=== PATIENT | female | born 1975 | race Caucasian/White ===

== ENCOUNTER 2017-01-19 04:00 | Emergency (ER) | payer BC, OTHER ==
[~2017-01-19] VITALS: Ht 172.7 cm; Wt 138.0 kg
[~2017-01-19 04:00] MED LIST: ALBUAER2 INH; ALT10 PO; ATV5 PO; BCPILLS PO; OMEP40CA PO; OXYC-57 PO; SERT-234 PO
[2017-01-19 04:08] VITALS: TEMP 36.5; Ht 172.7 cm; Wt 138.0 kg
--- NOTE | 2017-01-19 04:59 | EMERGENCY ROOM VISIT NOTE ---
ED Visit Note First contact with patient: 04:03 CHIEF COMPLAINT: Ankle pain HISTORY OF PRESENT ILLNESS: This 42-year-old patient presents to the emergency department via EMS with family after sustaining an injury to the right ankle and foot with a twisting, inversion motion when she tripped over her dog that was 170 pounds. The patient complains of pain along the outside of the ankle. The patient denies pain of the foot. The patient rates the pain as throbbing and 4/10. The patient is not able to bear weight on the foot. Constant pain, worse with movement, weight bearing, and the dependent position. No knee pain, the patient is able to move their toes. No numbness or weakness of the foot, no laceration. The patient has not had a previous fracture to this ankle. The patient has taken Tylenol for the pain. The patient denies any other injury. Patient states she had 4 mixed earlier but that was greater than 6 hours ago. It is now 4 AM in the morning. REVIEW OF SYSTEMS: A 6 system review of systems was completed with positives and pertinent negatives listed in the HPI. ALLERGIES: None MEDICATIONS: Reviewed PMH: Anxiety SOCIAL HISTORY: No drug use PHYSICAL EXAM: Vital Signs: Reviewed Nurse's notes, vital signs stable. GENERAL : Pleasant female, no acute distress, but appears in pain, well-developed, well- nourished. MENTAL STATUS: Alert, oriented to person place and time, and cooperative. MUSCULOSKELETAL: The right ankle is swollen and tender over the medial malleolus, but the skin is intact and there is no ligamentous instability. There is no fifth metatarsal tenderness. There is no tenderness over the rest of the foot. There is no calf or tibia/fibular tenderness. There is no visual deformity. The foot and toes are warm and well-perfused. Dorsalis pedis pulse 2+. Sensation to pain and light touch is intact. Capillary refill less than 2 seconds. EMERGENCY DEPARTMENT COURSE: I examined the patient. Ice pack was applied and patient declined pain medicine. X-rays of the right ankle were reviewed by myself and reveal trimalleolar fracture with mortise disruption per my interpretation. Stirrup and posterior Ortho-Glass was applied to the ankle under my direction and the position was satisfactory. Neurovascular status was rechecked and intact. The patient was instructed on the use of crutches. I consulted orthopedics and spoke with Dr. Ogden and recommends splint and he came in to see the patient as he had another patient in the ER. He did attempt to reduce the ankle and splinted. Please see his dictation for further information regarding his treatment plan. The patient was discharged home in good condition. Differential diagnoses include sprain, strain, fracture, dislocation and other etiologies were considered. DIAGNOSIS: Right ankle trimalleolar fracture with mortise disruption DISCHARGE INSTRUCTIONS: DO NOT drive, drink alcohol, operate machinery, or perform dangerous activities today. You were given medications in the ER that can affect your ability to safely function or operate a vehicle. Oxycodone (OxyIR) 5mg: Take 1-2 pills every four hours for breakthrough pain. Avoid alcohol, operating machinery or dangerous equipment, working on ladders or roofs, DRIVING, or situations where being under the influence may be dangerous. It is recommended to use an [id number] stool softener such as Colace, 100mg twice daily while taking this medication to avoid constipation. Ibuprofen(Motrin, Advil) may be used for fever or pain. Use 600mg every six hours as needed. Take with food. Avoid using more than 2400mg in a 24 hour period. Do not use 2400mg per day for more than three consecutive days without physician direction. Prolonged inappropriate use can lead to stomach upset or ulcers. This medication can be taken if you need to drive, work, or perform activities which may be dangerous when taking narcotic pain medication. (AND/OR) Acetaminophen(Tylenol) may be used for fever or pain. Use 1000mg every six hours as needed. Avoid using more than 4000mg in a 24 hour period. This medication can be taken if you need to drive, work, or perform activities which may be dangerous when taking narcotic pain medication. Ice compresses for 20 minutes at a time four times daily for 2-3 days. Use the crutches as instructed. Rest and elevate your injury. Do not get the splint wet. If your splint feels excessively tight, you have worsening pain, develop numbness or tingling, or your digits appear blue, loosen the armond wrap. Then reapply the armond wrap gently without removing the splint. If your symptoms are not quickly relieved return to the ER for re- evaluation. Continue current medications. Return to the ER immediately for any numbness, tingling, severe pain, extreme swelling in the extremity or as needed. Call Orthopedics tomorrow to arrange follow up for your injury. Current/Historical Medications Scheduled Albuterol (Ventolin), 2 PUFFS INH PRN Sertraline (Zoloft), 150 MG PO DAILY Scheduled PRN Oxycodone Immediate Rel Tab (Roxicodone Ir), 1-2 TAB PO Q4H PRN for Severe Pain Allergies Uncoded Allergies: AMOXILLIN (Allergy, Mild, RASH, 01/19/17) Vital Signs Date Time Temp Pulse Resp B/P (MAP) Pulse Ox O2 Delivery O2 Flow Rate FiO2 01/19/17 05:30 101 20 136/90 94 Room Air 01/19/17 04:08 36.5 97 17 136/90 95 Room Air Medications Administered Medications (Trade) Dose Ordered Sig/Keyla Route Start Time Stop Time Status Last Admin Dose Admin Lorazepam (Ativan Tab) 1 mg STK-MED ONCE .ROUTE 01/19/17 05:47 01/19/17 05:48 DC 01/19/17 05:47 1 MG Departure Information Prescriptions Oxycodone Immediate Rel Tab (ROXICODONE IR) 5 Mg Tab 1-2 TAB PO Q4H Y for Severe Pain, #20 TAB Prov: Karmen Albarado ., JAJA 01/19/17 Referrals Apolinar Mclain M.D. (PCP) Patient Instructions My [facility]
[2017-01-19] MEDS ORDERED: OXYCODONE IR HOME PACK PO ONE ×2 (05:00→09:44)
[2017-01-19] MEDS ORDERED: OXYC1TAB3 PO (05:01)
[2017-01-19] MEDS ORDERED: XYLOCAINE 1%/SOD BICARB 20 ML VIAL INFIL ONE (05:15)
[2017-01-19] MEDS ORDERED: LORAZEPAM 1 MG TAB ONE (05:47)
--- NOTE | 2017-01-19 07:17 | DIAGNOSTIC IMAGING REPORT ---
RIGHT ANKLE 2 VIEWS CLINICAL HISTORY: 42 years-old Female presenting with FALL/ANKLE PAIN/ETOH Right. TECHNIQUE: Frontal and lateral views of the right ankle were obtained. COMPARISON: None. FINDINGS: Evaluation limited due to patient positioning. Acute transversely oriented fracture of the medial malleolus with valgus angulation at the fracture site. Coronally oriented tibial plafond fracture. Obliquely oriented fracture of the fibula, which is at the level of the syndesmosis. Fragments noted posterior to the ankle likely at the fibular fracture site. The medial malleolus fracture fragment remains congruent at the ankle mortise as does the lateral malleolus. Disruption of the tibial plafond. With 11 mm of displacement of the posterior malleoli are fracture fragments and widening of the anterior joint space, which measures over 7 mm. Enthesophyte noted at the inferior calcaneus and insertion of the Achilles tendon. Os peroneum noted. Extensive soft tissue swelling. IMPRESSION: Adams B fracture pattern with fractures of the posterior and medial malleoli. The posterior malleolus fracture extensively involves the tibial plafond with significant resulting displacement as detailed above. Electronically signed by: Herb Li M.D. 01/19/2017 7:16 AM Dictated Date/Time: 01/19/2017 7:10 AM
--- NOTE | 2017-01-19 07:22 | DIAGNOSTIC IMAGING REPORT ---
RIGHT ANKLE MIN 3 VIEWS ROUTINE CLINICAL HISTORY: 42 years-old Female presenting with POST REDUCTION Right. TECHNIQUE: Frontal, mortise, and lateral views of the right ankle were obtained. COMPARISON: Plain radiographs performed earlier the same day. FINDINGS: Overlying plaster splint degrades evaluation of underlying osseous detail. The Adams B trimalleolar fracture pattern is again noted with decrease diastases at the transversely oriented medial malleolus fracture plane. An osseous fragment is again noted intervening within the fracture plane. Decreased diastases of the posterior malleolar fracture fragment, which is now displaced by 6 millimeters, previously 11 mm. The coronally oriented posterior malleolus fracture plane extensively involves the tibial plafond. Persistent widening of the anterior tibiotalar, measuring 4 to 5 mm, decreased from prior. Mild widening of the tibiofibular articulation. Again, the medial malleolus or fracture fragment and lateral malleolus remains congruent with the talus. IMPRESSION: Improved alignment at the Adams B trimalleolar fracture with persistent although decreased diastases of the posterior malleolus fracture fragment and widening of the anterior tibiotalar articulation. Additional findings as above. Electronically signed by: Herb Li M.D. 01/19/2017 7:21 AM Dictated Date/Time: 01/19/2017 7:17 AM
[2017-01-19 09:47] VITALS: BP 136/98; PULSE 102; O2SAT 96
[2017-01-29] MEDS ORDERED: HYDR-5688 PO ×2 (15:43)
[2017-01-29] MEDS ORDERED: VNTHFA/IN INH ×2 (15:43)
[2017-01-29] MEDS ORDERED: PROM25TA9 PO ×2 (15:44)
[2017-01-29] MEDS ORDERED: PRLSR20 PO ×2 (15:50)
--- NOTE | 2017-01-30 08:11 | Orthopedic Consultation ---
Orthopedic Consultation Date of Consultation: Jan 30, 2017. Attending Physician: Reason for Consultation: Right Ankle fracture History of Present Illness Patient seen at [facility] ER on 01/19/17 accompanied with family, reports fall this evening when she tripped over her dog. Reports inability to bear weight, + pain, +edema and subsequently came to the ED. Denies any associated injury, numbness, tingling or hitting head or LOC. Past Medical/Surgical History Medical Problems: (1) Fracture of ankle, trimalleolar, closed Status: Acute Social History Smoking Status: Never Smoker Allergies Coded Allergies: Amoxicillin (Verified Allergy, Mild, MILD RASH, 01/29/17) Morphine (Verified Allergy, Unknown, INEFFECTIVE, 01/29/17) Home Medications Scheduled Omeprazole (Prilosec), 20 MG PO PRN Sertraline (Zoloft), 200 MG PO QAM Scheduled PRN Albuterol Hfa (Ventolin Hfa), 2 PUFFS INH Q6H PRN for PRN Hydrocodone/Acetaminophen 5MG/325MG (King 5MG/325MG), 1 TABLET PO Q4-6H PRN for Pain Promethazine Hcl (Phenergan), 25 MG PO Q6H PRN for Nausea Physical Exam NAD, AOX3 B/L UE NVSI +M/R/U/AIN/PIN SILT grossly, CR< 2 seconds, +2 Radial Pulse, full painless ROM Wrist, Elbow, Shoulder. LLE NVSI +EHL/FHL/TA/GS SILT grossly, CR< 2 seconds, +2 DP pulse, full painless ROM ankle/knee/hip RLE NVSI +EHL/FHL, dorsiflexion, plantarflexion deferred, +2 DP Pulse, CR< 2 seconds, +Edema ankle, +ecchymosis, compartments soft NT, skin intact Assessment & Plan 42 yo F with right trimalleolar ankle fracture -Hematoma block performed by injecting 10cc of 1% lidocaine into the ankle joint , followed by closed reduction and splinting. -Post reduction images taken which demonstrated reduction of the fracture in the coronal plane and mild residual dorsal subluxation. -Patient educated on the importance of strict non weight bearing, elevation and cyrotherapy -She is to follow up with Dr. Leahy and should call the office to schedule her appointment on Friday for surgical planning. -Pain controlled -Patient educated on risk of increased pain and swelling in RLE and should come back to the ER to be evaluated if symptoms worsen. XR right ankle demonstrates trimalleolar fracture with dorsal and lateral subluxation.
[2017-01-31] MEDS ORDERED: PROM25TA9 PO ×2 (18:36)
[2017-01-31] MEDS ORDERED: HYDR-5688 PO ×2 (18:36)
[2017-01-31] MEDS ORDERED: ASPEC325 PO ×2 (18:41)
== END 2017-01-19 09:57 | disposition home or self-care (01) ==
LOC: EDBD 04:00 → C.EDC 04:01
DX: S82.51XA Displaced fracture of medial malleolus of right tibia, initial encounter for closed fracture (principal); W01.0XXA Fall on same level from slipping, tripping and stumbling without subsequent striking against object, initial encounter; Y92.9 Unspecified place or not applicable; F41.9 Anxiety disorder, unspecified; Z79.899 Other long term (current) drug therapy

== ENCOUNTER → 2017-01-31 | Day surgery (SDC) | payer OTHER ==
[2017-01-29 15:45] VITALS: BMI 46.0
--- NOTE | 2017-01-30 21:25 | History and Physical ---
History & Physical Date Jan 30, 2017. Chief Complaint Right ankle pain History of Present Illness The patient is a 42 year old female with complaints of right ankle pain after sustaining a right ankle injury. She noted a deformity and was taken to [facility] ER where x-rays were performed and the fx/dislocation was later reduced and splinted. She is now being set up for surgical management. Past Medical/Surgical History PMH: Obesity, depression, GERD, Asthma Past surgical hx: Right knee surgery, cholecystectomy Nonsmoker, No alcohol use. Allergies Coded Allergies: Amoxicillin (Verified Allergy, Mild, MILD RASH, 01/29/17) Morphine (Verified Allergy, Unknown, INEFFECTIVE, 01/29/17) Home Medications Scheduled Omeprazole (Prilosec), 20 MG PO PRN Sertraline (Zoloft), 200 MG PO QAM Scheduled PRN Albuterol Hfa (Ventolin Hfa), 2 PUFFS INH Q6H PRN for PRN Hydrocodone/Acetaminophen 5MG/325MG ([place] 5MG/325MG), 1 TABLET PO Q4-6H PRN for Pain Promethazine Hcl (Phenergan), 25 MG PO Q6H PRN for Nausea Physical Examination Skin: warm/dry, no rash Eyes: normal inspection ENT: normal ENT inspection Head: normocephalic, atraumatic Neck: supple, no adenopathy, trachea midline Respiratory/Chest: lungs clear, normal breath sounds, no respiratory distress Cardiovascular: regular rate, rhythm, no murmur Abdomen / GI: normal bowel sounds, non tender Extremities: + pertinent finding (Right ankle: NWB RLE in splint. Tender throughout the ankle. No ROM or strength testing performed. NV intact RLE.) Neurologic/Psych: no motor/sensory deficits, alert, oriented x 3 Diagnosis Right trimalleolar ankle fx. Plan of Treatment Recommend an ORIF right trimalleolar ankle fx with posterior approach with patient prone. All potential risks, benefits, complications, alternatives, and rehab have been discussed and she wishes to proceed. She will be scheduled for 01.31.17 with ASA 81 mg BID x 4-6 wks for DVT prophylaxis.
[~2017-01-31] VITALS: Ht 172.7 cm; Wt 138.6 kg
[~2017-01-31] MED LIST changes: +ASPEC325 PO; +ATROPINE SULFATE 0.1 MG/ML 5ML SYR IV PRN; +BACITRACIN 50000 UNIT VIAL ONE; +BUPIVACAINE 0.5 % 5 MG/1 ML PF 10ML VIAL ONE; +BUPIVACAINE/EPINEPHRINE 0.5% MPF 1:200,000 30 ML VIAL ONE; +CEFAZOLIN 2000 MG/60 ML D5W IV SCH; +DEXAMETHASONE SOD INJ 4 MG/ML VIAL ONE; +FENTANYL CITRATE INJ 50 MCG/1 ML 2 ML VIAL ONE; +GLYCOPYRROLATE INJ 0.2 MG/ML VIAL ONE; +HYDR-5688 PO; +HYDROmorphone INJ 1 MG/ML SYR ONE; +HYDROmorphone INJ 2 MG/ML SYR/VIAL IV PRN; +KETOROLAC TROMETHAMINE 30 MG/ML VIAL IV. PRN; +LACTATED RINGER'S 1000ML 1,000 ML IV SCH; +LIDOCAINE HCL 2% 2 ML VIAL (20MG/ML) ONE; +MIDAZOLAM HCL 1 MG/ML 2ML VIAL ONE; +NEOSTIGMINE METHYLSULFATE 5 MG/5 ML SYR ONE; +ONDANSETRON INJ 2 MG/ML 2 ML VIAL IV PRN; +ONDANSETRON INJ 2 MG/ML 2 ML VIAL ONE; +OXYC1TAB3 PO; +OXYCODONE/ACETAMINOPHEN 5-325 TAB PO PRN; +PATIENT'S HEIGHT AND/OR WEIGHT NEEDED SCH; +PRLSR20 PO; +PROM25TA9 PO; +PROMETHAZINE HCL INJ 12.5 MG in SODIUM CHLORIDE 0.9% 50ML 50 ML IV PRN; +PROPOFOL IV EMULSION 10 MG/ML 20 ML VIAL IV ONE; +ROCURONIUM BROMIDE 10 MG/ML 5 ML VIAL IV ONE; +SCOPOLAMINE 1.5 MG TDSY TD ONE; +SODIUM CHLORIDE 0.9% 1000ML 1,000 ML IV SCH; +SODIUM CHLORIDE 0.9% INJ 10 ML VIAL ONE; +VNTHFA/IN INH
[2017-01-31 11:14] VITALS: BP 144/89; PULSE 87; TEMP 36.4; O2SAT 95; Ht 172.7 cm; Wt 138.6 kg
--- NOTE | 2017-01-31 13:24 | History & Physical Bridge Note ---
H&P Re-Evaluation Bridge Note: I have examined the patient, reviewed the History & Physical and in the interval since the performance of the History & Physical I have noted the following changes of clinical significance: No changes noted
--- NOTE | 2017-01-31 18:40 | Discharge Instructions ---
Discharge Instructions Date of Service Jan 31, 2017. Admission Reason for Admission: Right Ankle Trimalleolar Fracture Discharge Discharge Diagnosis / Problem: ankle ORIF Discharge Goals Goal(s): Improve function Activity Recommendations Activity Limitations: as noted below . Instructions / Follow-Up Instructions / Follow-Up Keep dressings clean dry and in tact, Do NOT get wet. Ice/ elevate as needed Non weight bearing right leg with crutches or walker. Follow up with Dr. Leahy 10-12 days post op, call [phone] to confirm appt. Current Hospital Diet Patient's current hospital diet: Discharge Diet Recommended Diet: Regular Diet Pending Studies Studies pending at discharge: no Medical Emergencies . Who to Call and When: Medical Emergencies: If at any time you feel your situation is an emergency, please call 911 immediately. . Non-Emergent Contact Non-Emergency issues call your: Primary Care Provider . "Provider Documentation" section prepared by Fei Hollis. . VTE Core Measure Inpt VTE Proph given/why not?: Angella Sanderson SCD's [place] Drug Monitoring Program Search Results: patient reviewed within database, no issues identified
--- NOTE | 2017-01-31 18:48 | [facility] Post Operative Brief Note ---
Immediate Operative Summary Operative Date Jan 31, 2017. Pre-Operative Diagnosis Right displaced trimalleolar ankle fracture. Pilon variant distal tibial fracture Post-Operative Diagnosis Right displaced trimalleolar ankle fracture. Pilon variant distal tibial fracture Procedure(s) Performed ORIF right displaced trimalleolar ankle fracture Surgeon Dr. Immanuel Leahy D.O. Cable Television Access Coordinator Surgeon(s) Dr. Gopal Johnson D.O. Estimated Blood Loss 50mL Findings See dict Specimens None, Per Surgeon Drains None Anesthesia GETT w/ poplitteal block Complication(s) None Disposition Recovery Room / PACU
--- NOTE | 2017-01-31 19:17 | DIAGNOSTIC IMAGING REPORT ---
R ANKLE 2 VIEWS HISTORY: 42 years-old Female RT ORIF TRIMALLEOLAR FX status post ORIF with prior right ankle fracture. COMPARISON: Right ankle radiographs 01/19/2017 TECHNIQUE: 2 spot fluoroscopic images of the right ankle were obtained utilizing 130.9 seconds of fluoroscopy time. FINDINGS: There has been interval ORIF with plate and screw fusion hardware fixating the lateral and posterior malleolus fractures. There are 2 cannulated screws fixating the medial malleolus fracture. There is improved alignment. Hardware appears intact. IMPRESSION: Status post ORIF of the previously noted trimalleolar fracture with satisfactory alignment. The above report was generated using voice recognition software. It may contain grammatical, syntax or spelling errors. Electronically signed by: Eugenio Donnelly M.D. 01/31/2017 7:16 PM Dictated Date/Time: 01/31/2017 7:14 PM
[2017-01-31 20:15] VITALS: BP 127/79; PULSE 94; TEMP 36.5; O2SAT 97
--- NOTE | 2017-01-31 20:43 | Anesthesiology Progress Note ---
Anesthesia Post Op Note Date & Time Jan 31, 2017 at 20:43 Vital Signs Pain Intensity: 1 Vital Signs Past 12 Hours Date Time Temp Pulse Resp B/P (MAP) Pulse Ox O2 Delivery O2 Flow Rate FiO2 01/31/17 20:15 36.5 94 18 127/79 97 Room Air 01/31/17 20:10 93 15 128/74 97 Room Air 01/31/17 20:00 36.4 94 14 128/76 98 Room Air 01/31/17 19:50 98 10 128/66 96 Room Air 01/31/17 19:40 105 13 136/82 95 Room Air 01/31/17 19:30 108 22 149/85 96 Oxymask 3 01/31/17 19:20 110 20 152/80 99 Oxymask 10 01/31/17 19:10 109 23 151/84 99 Oxymask 10 01/31/17 19:00 36.6 112 17 165/94 98 Oxymask 10 01/31/17 11:14 36.4 87 18 144/89 (107) 95 Room Air Notes Mental Status: alert / awake / arousable, participated in evaluation Pt Amnestic to Procedure: Yes Nausea / Vomiting: adequately controlled Pain: adequately controlled Airway Patency, RR, SpO2: stable & adequate BP & HR: stable & adequate Hydration State: stable & adequate Anesthetic Complications: no major complications apparent
[2017-01-31 20:49] VITALS: BP 130/78; PULSE 94; TEMP 36.5; O2SAT 97
--- NOTE | 2017-01-31 21:17 | DIAGNOSTIC IMAGING REPORT ---
R ANKLE MIN 3 VIEWS ROUTINE HISTORY: 42 years-old Female s/p ORIF right ankle, XR in PACU status post ORIF of the right ankle. Trimalleolar right ankle fracture COMPARISON: Spot fluoroscopic images of the right ankle of same day TECHNIQUE: 3 portable views of the right ankle FINDINGS: Fine bony details obscured by overlying casting material. There has been interval ORIF with plate and screw fusion hardware fixating the lateral and posterior malleolus fractures. There are 2 cannulated screws fixating the medial malleolus fracture. There is improved alignment. Hardware appears intact. There is prominent spurring about the calcaneus. IMPRESSION: Status post ORIF of the previously noted trimalleolar fracture with satisfactory alignment. The above report was generated using voice recognition software. It may contain grammatical, syntax or spelling errors. Electronically signed by: Eugenio Donnelly M.D. 01/31/2017 9:16 PM Dictated Date/Time: 01/31/2017 9:14 PM
--- NOTE | 2017-01-31 21:22 | OPERATIVE REPORT ---
DATE OF OPERATION: 01/31/2017 PREOPERATIVE DIAGNOSES: 1. Right displaced trimalleolar ankle fracture. 2. Pilon variant distal tibial fracture. POSTOPERATIVE DIAGNOSES: Same. PROCEDURE: Open reduction and internal fixation of trimalleolar ankle fracture, right ankle through a posterior approach. SURGEON: Dr. Leahy. PAVER OPERATOR: Gopal Johnson DO. ANESTHESIA: General endotracheal tube with popliteal block. SPECIMENS: None. DRAINS: None. COMPLICATIONS: None. BLOOD LOSS: 50 mL. PERTINENT HISTORY: This is a 42-year-old female who sustained a severe twisting injury to her right ankle after she fell over a large dog. She had a badly displaced trimalleolar ankle fracture of the right lower extremity. She had radiographs and CT scan and was then scheduled for surgery as indicated. All potential risks, benefits, complications, alternatives, rehab, potential for incomplete relief of symptoms, need for further surgery, DVT, PE, , persistent pain, swelling, scarring, weakness, neurovascular injury, wound complications, nonunion, malunion, hardware breakage were discussed with the patient. The patient decided to proceed with the procedure as indicated. PROCEDURE IN DETAIL: The patient had a popliteal block in the preop holding area, she was then taken to the operative suite and placed supine on the operating room table. After review of the consent and identification of proper operative site, the patient was anesthetized and then rolled prone over bolsters and all bony prominences were properly padded and protected. Tourniquet was placed high on the right thigh over cast padding. Right lower extremity was then sterilely prepped and draped in usual fashion, elevated, and exsanguinated with an Esmarch bandage, tourniquet inflated to 350 mmHg. Next, a posterolateral approach was made to the distal tibia with a 15 blade scalpel, the lateral aspect of the Achilles. The incision was deepened through subcutaneous tissue. Meticulous hemostasis was achieved with electrocautery. The posterior retinaculum was then incised along the skin incision. The sural nerve was identified, freed, retracted, and protected. Next, deep retinaculum was then incised in line with skin incision. The Achilles was retracted medially and the peroneal tendons were retracted laterally. Flexor hallucis longus was then released from the fibula and retracted medially. The peroneal tendons were then also carefully retracted and elevated from the posterior and posterolateral aspect of the fibula. Periosteum was then incised in line with skin incision over the distal tibia, revealing the large posterior fragment comprising approximately 40-45% of the articular surface. The fragment was then irrigated and debrided with a small dental pick. Next, attempt was made at reduction with direct compression with a periosteal elevator and the 1.6 mm guide pins were then used to pin the fragment provisionally in place. This was marked improvement and on lateral views noted to be a small step-off. Next, the Synthes posterior locking T-plate was then loosely affixed to the posterior aspect of the tibia and then using a lag compression technique, the posterior fragment was then advanced distally to near anatomic reduction and fixation after removal of the provisional pins. Next, the plate was then secured in the more proximal tibia with a nonlocking screw and then multiple locking screws were used to stabilize the fracture fragments in place. Next, guide pins were removed. Attention was then directed toward the fibula. A Hohmann retractor was placed around the fibula. The large posterior fragment was then carefully debrided, irrigated and then reduced with a bone reduction forcep. Next, a single 3.5 mm lag screw was placed from posterior to anterior, followed by placement of a posterior locking 1/3 tubular plate, placed under live fluoroscopic assistance. This stabilized the fracture fragments and reduced the ankle to near anatomic alignment. Next, a 15 blade scalpel was then used to make an incision over the medial malleolus. Care was taken to identify, retract and protect the saphenous vein. Periosteal tissue had flipped inside the fracture. This was then carefully withdrawn and then debrided with a Metzenbaum scissor. The wound was copiously irrigated with sterile normal saline. The fracture was then irrigated and debrided and then the fracture was reduced and held in place with two 1.25 mm guide pins, followed by placement of two 4.0 cannulated screws over the medial malleolar fracture fragment to reduce it and fix it in stable anatomic position under live fluoroscopic assistance. Next, guide pins were removed. The posterior incision and the medial incision were both irrigated copiously with sterile normal saline until clear. Next, the posterior incision was closed using buried interrupted 2-0 Vicryl in the dermis and the skin was closed using 4-0 nylon. The medial incision was closed using 0 Vicryl sutures in the dermis and 4-0 nylon sutures in the skin. A sterile compressive dressing and bulky Naresh Nur plaster splint was applied in neutral dorsiflexion, overwrapped with an Yehuda wrap. The tourniquet was then released. The patient was awakened and taken to recovery in stable condition. I attest to the content of the Intraoperative Record and any orders documented therein. Any exception s are noted below.
== END | disposition home or self-care (01) ==
LOC: C.ACU 10:48
PROVIDERS: ATTEND Orthopaedic Surgery Sports Medicine
DX: S82.851A Displaced trimalleolar fracture of right lower leg, initial encounter for closed fracture (principal); S82.871A Displaced pilon fracture of right tibia, initial encounter for closed fracture; W01.0XXA Fall on same level from slipping, tripping and stumbling without subsequent striking against object, initial encounter; J45.909 Unspecified asthma, uncomplicated; Z88.0 Allergy status to penicillin; E66.9 Obesity, unspecified; Z90.49 Acquired absence of other specified parts of digestive tract; Z98.890 Other specified postprocedural states; Z88.1 Allergy status to other antibiotic agents; Z88.5 Allergy status to narcotic agent; Z68.42 Body mass index [BMI] 45.0-49.9, adult